=== PATIENT | female | born 1980 | race Caucasian/White ===

== ENCOUNTER → 2016-10-05 | Outpatient (CLI) | payer OTHER ==
--- NOTE | 2016-10-05 20:16 | DX ---
Skull, Two Views Reason for Examination: Evaluate right forehead region to evaluate for osseous abnormality. Comparison: No previous studies are available for comparison. Findings: No osseous abnormality is identified. Specifically, no definite abnormality in the right forehead region. If more detailed analysis is considered indicated, CT scan could be obtained for fu rther assessment. Impression: Negative skull series.
== END ==
LOC: FIMAGING 18:11
PROVIDERS: ATTEND Dermatology
DX: D48.5 Neoplasm of uncertain behavior of skin (principal)